=== PATIENT | female | born 1950 | race Caucasian/White ===

== ENCOUNTER 2023-03-06 09:37 | Inpatient (IN) ==
[2023-03-06] MEDS ORDERED: SODIUM CHLORIDE 0.9% 500 ML IV SCH (10:00)
--- NOTE | 2023-03-06 10:15 | Emergency Department Note ---
Impression & Plan Acute ischemic left MCA stroke, Acute confusion, Tobacco use disorder, Hypokalemia ED Provider Note NAME: TRISTAN JOY AGE: 72 SEX: F : 1950 ARRIVES VIA: Ambulance INFORMANT: [Patient][, ] ED PROVIDER(S): [Gian Arnold MD] CHIEF COMPLAINT: Possible confusion MEDICAL DECISION MAKING: Patient presents due to concern for possible confusion but symptoms in several days ago. IV was established and blood was obtained along with urinalysis and CT of the head. Patient does have T wave inversions noted on EKG but most of this appears to be chronic and patient denies any chest pains or shortness of breath. Blood work shows a normal white count mild elevation hemoglobin at 16.7 with normal platelet count. Patient's kidney function is unremarkable mild elevation of bicarb of the patient is a chronic smoker. Potassium slightly low at 3.1. Troponin not elevated. Urinalysis without obvious signs of blood or infection. Bio fire positive for enterorhinovirus. CT of the head does show concern for acute stroke at the left caudate. 4 mm of shift noted. CT angiography's of the head and neck were ordered along with brain MRI. CTA of the head and neck does show the infarct of the left basal ganglia. No evidence of any hemorrhagic conversion. The patient does have focal thrombosis of the distal M1 segment of the left MCA with distal reconstitution. Moderate stenosis of the right PETR. High-grade focal stenosis of a portion of the right internal carotid. I did speak with the on-call neurologist Dr. Verma after discussing the patient's chronicity of symptoms as well as findings on CT and CT angiography he is agreeable to aspirin as well as a Plavix load. Patient is already been ordered full dose aspirin additional treatment deferred to inpatient hospitalist team. Patient did pass her dysphagia screen. I did speak with the on-call hospitalist and the patient was admitted to the medicine service pending brain MRI. Patient was not a TNK candidate given that her symptoms began several days ago. Discussion w/ other healthcare providers: Dr. Mariano with inpatient medicine service Dr. Verma with neurology Prior /Outside records reviewed: Reviewed a primary care visit from October 01, 2022. The patient was seen due to concern for impacted cerumen of the right ear as well as sinusitis and was started on doxycycline. Differential diagnosis: Infection, dehydration, metabolic abnormality, hypo/hyperglycemia, electrolyte imbalance, anemia, UTI, pneumonia, thyroid dysfunction among others were considered. Diagnostics, as interpreted by me: ECG: Normal sinus rhythm, rate of 61, normal intervals, left axis deviation with T wave inversions from V3 through V6 as well as in the high lateral leads. No significant changes from comparison EKG May 08, 2022 Cardiac monitoring: An order was placed for continuous cardiac monitoring. The monitor shows a rate of 62 with sinus rhythm. [Patient was placed on pulse oximetry] Medical decision rules: [none] Imaging studies: [I informally interpreted the patient's CT head which does not show obvious ICH with formal report to follow.] [] HPI: Patient presents and nursing reports that the was concerned about some possible confusion and the patient does admit to not being able to answer certain questions but the patient denies any headache or neck pain no cough or fever. The patient is a chronic smoker. Patient denies any dysuria or increase in frequency no urinary symptoms. Patient denies any falls or trauma. Patient denies any numbness tingling or focal weakness no slurred speech or facial droop. Patient denies having any symptoms in the preceding several days prior. Patient is a chronic smoker. She denies any alcohol or drug use. PAST MEDICAL HISTORY: [See Below] PAST SURGICAL HISTORY: [See Below] SOCIAL HISTORY: [See Below] HOME MEDICATIONS: [See Below] ALLERGIES: [See Below] VITALS: [See Below] PHYSICAL EXAMINATION: GENERAL: NAD, non-toxic. Thin in appearance. EYE EXAM: Normal conjunctiva. PERRL, no anisocoria and EOM's grossly intact w/o pain. OROPHARYNX: Moist mucus membranes, grossly normal dentition. NECK: Supple, no nuchal rigidity, no adenopathy, non-tender. No signs of meningismus. FROM of the neck with good chin to chest and neck extension. No stridor. LUNGS: Decreased breath sounds throughout. Normal chest wall mechanics. HEART: NSR, no MRG. ABDOMEN: Abdomen soft, non-tender, no masses, no rebound or guarding. BACK: No CVA TTP. SKIN: No rashes and no bruising. UPPER EXTREMITIES: Upper extremities are grossly normal. LOWER EXTREMITIES: Grossly normal, no edema. NEURO EXAM: Awake and alert follows basic commands gives incorrect year but able to state where she is in location in [place], able to answer simple addition of subtraction but not multiplication, cranial nerves II-XII grossly intact, normal speech, moves all 4 extremities. No sensory deficits good [id number]. Past Med/Surg History Medical History (Updated 03/06/23 @ 17:14 by Gian Arnold MD) Hypertension Surgical History No pertinent past surgical history Family History Grandmother Breast cancer Other Colorectal cancer Unknown family medical history Denies family history of Ovarian cancer Prostate cancer Social History Smoking Status: Current every day smoker Tobacco Type: Cigarettes Age Started Using Tobacco: 23; Cigarettes Per Day: 10 cigarettes; Second Hand Exposure: No; Do You Dip or Chew Tobacco: No; Hx Alcohol Use: Yes Hx Substance Use: No Preferred Language: Norwegian Communication Ability: Effective Pie Maker Machine Required: No Beliefs That Will Affect Care: None marital status: Current Living Situation: Significant Other current occupational status: employed 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 How many Children do You have: 2 Feels Safe at Home: Yes Childhood Exposure to Second-Hand Smoke: Yes Diet: regular caffeine: Yes Dental Care, Regularly: No Physical Activity Frequency: Daily Seatbelt Use: always Sunscreen Use: Yes Do you think of yourself as: straight/heterosexual Allergies Allergies Allergy/AdvReac Type Severity Reaction Status Date / Time Penicillins Allergy Verified 10/01/22 09:30 Home Meds Home Medications Medication Instructions Recorded Confirmed prednisone 20 mg tablet 0 mg PO DAILY 03/06/23 03/06/23 Previous Rx's Medication Instructions Recorded hydrochlorothiazide 25 mg tablet 25 mg PO DAILY #90 tabs 06/10/22 potassium chloride 20 mEq 20 meq PO DAILY #90 tabs 06/10/22 tablet,extended release atenolol 100 mg tablet 100 mg PO DAILY #90 tabs 10/23/22 Results & Data (ED) Vital Signs Vital Signs - 24 hr 03/06/23 09:46 03/06/23 09:51 03/06/23 09:51 Temperature 36.6 C 36.6 C Temperature Source Oral Oral Pulse Rate 57 L Pulse Rate [Right Finger] 55 L Pulse Rhythm Regular Pulse Rhythm [Right Finger] Regular Pulse Strength Normal Pulse Strength [Right Finger] Normal Respiratory Rate 16 20 Respiratory Effort / Characteristics Non-Labored Spontaneous Non-Labored Spontaneous Respiratory Depth Normal Normal Respiratory Pattern Regular Regular Blood Pressure 182/109 H Blood Pressure [Right Arm] 182/109 H Blood Pressure Mean 133 Blood Pressure Mean [Right Arm] 133 Blood Pressure Position Lying Blood Pressure Position [Right Arm] Semi-fowlers Pulse Oximetry 96 93 93 Oxygen Delivery Method Room Air Room Air Room Air Sepsis Recent Fever Within 48 Hours No Sepsis New/Unexplained Change in Mental Status Yes Sepsis Action Taken by Nursing No Action Required 03/06/23 09:59 03/06/23 10:24 03/06/23 11:49 Temperature 36.6 C Temperature Source Oral Pulse Rate 54 L 55 L Pulse Rate [Right Finger] 55 L Pulse Rhythm Regular Pulse Rhythm [Right Finger] Regular Pulse Strength Pulse Strength [Right Finger] Normal Respiratory Rate 18 18 Respiratory Effort / Characteristics Non-Labored Spontaneous Respiratory Depth Normal Respiratory Pattern Regular Blood Pressure Blood Pressure [Right Arm] 181/100 H Blood Pressure Mean Blood Pressure Mean [Right Arm] 127 Blood Pressure Position Blood Pressure Position [Right Arm] Semi-fowlers Pulse Oximetry 94 94 Oxygen Delivery Method Room Air Room Air Sepsis Recent Fever Within 48 Hours Sepsis New/Unexplained Change in Mental Status Sepsis Action Taken by Nursing Laboratory Data 03/06/23 09:45 03/06/23 09:45 Lab Results 03/06/23 03/06/23 Range/Units 09:45 11:43 WBC 7.42 (4.8-10.8) K/ul RBC 5.33 (4.20-5.40) M/uL Hgb 16.7 H (12.0-16.0) g/dl Hct 50.6 H (37.0-47.0) % MCV 94.9 (80.0-100.0) fL MCH 31.3 (25.0-34.0) pg MCHC 33.0 (32.0-36.0) g/dL RDW Std Deviation 42.5 (36.4-46.3) fL RDW Coeff of Ytree 12.2 (11.5-14.5) % Plt Count 242 (130-400) K/uL MPV 9.6 (9.4-12.4) fL Immature Gran % (Auto) 0.4 % Neut % (Auto) 69.7 % Lymph % (Auto) 22.8 % Delta % (Auto) 6.3 % Eos % (Auto) 0.5 % Baso % (Auto) 0.3 % Neut # (Auto) 5.17 (1.40-6.50) K/uL Lymph # (Auto) 1.69 (1.20-3.40) K/uL Delta # (Auto) 0.47 (0.11-0.59) K/uL Eos # (Auto) 0.04 (0.00-0.50) K/uL Baso # (Auto) 0.02 (0.00-0.20) K/uL Immature Gran # (Auto) 0.03 (0.01-0.20) K/uL PT 11.4 (9.0-12.0) Seconds INR 1.0 (0.9-1.1) Sodium 141 (136-145) mmol/L Potassium 3.1 L (3.5-5.1) mmol/L Chloride 100 (98-107) mmol/L Carbon Dioxide 35 H (21-32) mmol/L Anion Gap 6 (3-11) BUN 22 (6-23) mg/dl Creatinine 0.74 (0.6-1.2) mg/dl Est Cr Clr Drug Dosing 53.6 ml/min Est GFR ( Amer) 95.1 ml/min Est GFR (Non-Af Amer) 82.1 ml/min BUN/Creatinine Ratio 29.7 H (10-20) Glucose 191 H (70-99(Fasting)) mg/dl Calcium 10.1 (8.6-10.3) mg/dl Magnesium 1.7 (1.7-2.4) mg/dl Total Bilirubin 0.7 (0.2-1.0) mg/dl AST 17 (13-39) U/L ALT 11 (7-52) U/L Alkaline Phosphatase 78 (34-104) U/L Troponin I High Sens 4.8 (0-14) pg/ml Total Protein 7.0 (6.0-8.3) gm/dl Albumin 4.0 (3.4-5.0) gm/dl Globulin 3.0 (2.5-4.0) gm/dl Albumin/Globulin Ratio 1.3 (0.9-2) TSH 3.435 (0.300-4.500) uIu/ml Adenovirus (PCR) Not Detected (NotDetected) B. pertussis DNA (PCR) Not Detected (NotDetected) B.parapertussis DNA PCR Not Detected (NotDetected) C. pneumoniae DNA (PCR) Not Detected (NotDetected) Coronavirus OC43 (PCR) Not Detected (NotDetected) Coronavirus HKU1 (PCR) Not Detected (NotDetected) Coronavirus 229E (PCR) Not Detected (NotDetected) SARS-CoV-2 (PCR) Not Detected (NotDetected) Coronavirus NL63 (PCR) Not Detected (NotDetected) Human Metapneumovir PCR Not Detected (NotDetected) Influenza Type A (PCR) Not Detected (NotDetected) Influenza Type B (PCR) Not Detected (NotDetected) M. pneumoniae (PCR) Not Detected (NotDetected) Parainfluenza 1 (PCR) Not Detected (NotDetected) Parainfluenza 2 (PCR) Not Detected (NotDetected) Parainfluenza 3 (PCR) Not Detected (NotDetected) Parainfluenza 4 (PCR) Not Detected (NotDetected) RSV (PCR) Not Detected (NotDetected) Entero/Rhino (PCR) DETECTED A* (NotDetected) Administered Medications Discontinued Medications Aspirin (Aspirin Chew 324 Mg) 324 mg PO NOW STA Stop: 03/06/23 10:59 Last Admin: 03/06/23 11:49 Dose: 324 mg Documented By: PATIENCE Clopidogrel Bisulfate (Clopidogrel Bisulfate 300 Mg Tab) 300 mg PO NOW STA Stop: 03/06/23 12:09 Last Admin: 03/06/23 12:32 Dose: 300 mg Documented By: PATIENCE Sodium Chloride (Nss) 500 mls @ 999 mls/hr IV .Q31M TYRONE Stop: 03/06/23 10:30 Last Infusion: 03/06/23 15:30 Dose: Infused Documented By: PATIENCE(2) Admin: 03/06/23 10:27 Dose: 999 mls/hr Documented By: PATIENCE Ioversol (Optiray 320 500ml) 113 ml IV ONCE ONE Stop: 03/06/23 11:20 Last Admin: 03/06/23 11:19 Dose: 113 ml Documented By: EDK Imaging Data Radiologist's Impression: Chest X-Ray 03/06/23 09:59 XR chest 1V portable CLINICAL HISTORY: weakness TECHNIQUE: Single frontal radiograph of the chest was obtained. Comparison: Comparison is made to chest radiograph 05/09/2022 FINDINGS: No lines and tubes are seen. Calcified aortic knob is seen. The lungs are clear. No evidence of pleural effusion or pneumothorax. IMPRESSION: No acute chest disease. ACT 112: Negative or not required by law. Electronically signed by: Oskar Akins M.D. 03/06/2023 10:[address] 03/06/23 10:00 CT head/brain wo con CLINICAL HISTORY: confusion Technique: Contiguous axial CT images of the head were acquired from the base of the skull to the vertex without intravenous contrast administration. Images were viewed in brain, subdural and bone windows. Automated dose lowering techniques and/or adjustment according to patient size were utilized for this exam. Comparison: None available at the time of this dictation. Findings: There is focal edema at the region of the left caudate head. Mild mass effect is seen on the left lateral ventricle with approximately 4 mm rightward midline shift. No hemorrhage is seen. Imaged portions of the paranasal sinuses and mastoid air cells are clear. The orbits appear normal. There are no acute fractures of the calvaria or scalp swelling. Impression: Findings compatible with acute infarct in the region of the left caudate head without evidence of hemorrhagic transformation. ACT 112: Negative or not required by law. Electronically signed by: Oskar Akins M.D. 03/06/2023 10:25 AM Brain MRI 03/06/23 10:58 MR brain wo con HISTORY: 72 years-old Female eval stroke acute stroke like symptoms COMPARISON: 03/06/2023 TECHNIQUE: Multiplanar multisequence MRI of the brain was obtained without the use of IV contrast. FINDINGS: Acute left cerebral infarcts include a 2.9 cm infarct in the left cantu radiata which also involves the lentiform nucleus and external capsule. Tiny adjacent subcentimeter acute infarcts are noted within the cantu radiata superior to this and also within the left insular ribbon. Cytotoxic edema from the infarction is noted with mass effect and partial effacement of the left lateral ventricle. 4 mm rightward midline shift. No acute intracranial hemorrhage, hydrocephalus or abnormal extra-axial collection. Involutional changes with mild chronic microvascular ischemic disease. Occlusion of the left middle cerebral artery is better seen on the CTA study of same day. Severe mucosal thickening of the left maxillary sinus. IMPRESSION: 1. Acute infarct within the left caudate nucleus, cantu radiata and lentiform nucleus measuring up to approximately 3 mm with a few adjacent subcentimeter acute infarcts within the left frontal lobe. 2. 4 mm rightward midline shift. 3. No acute intracranial hemorrhage or hydrocephalus. ACT 112: Negative or not required by law. The above report was generated using voice recognition software. It may contain grammatical, syntax or spelling errors. Electronically signed by: Guicho Brian M.D. 03/06/2023 2:34 PM Head CTA 03/06/23 10:58 CT ANGIOGRAM OF THE BRAIN; CT ANGIOGRAM OF THE NECK CLINICAL HISTORY: Stroke. Weakness. Change in mental status. COMPARISON STUDY: Unenhanced CT of the brain performed the same day 03/06/2023. TECHNIQUE: Following the IV administration of 113 of Optiray 320, CT angiogram of the head and neck was performed from the aortic arch to the vertex. Images are reviewed in the axial, sagittal, and coronal planes. 3-D MIPS images are created and assessed. IV contrast was administered without complication. All measurements were calculated based on NASCET criteria. A dose lowering technique was utilized adhering to the principles of ALARA. CT DOSE: 408.3 mGy.cm FINDINGS: Brain parenchyma: Again seen is a subacute infarct centered in the left basal ganglia. There is no evidence of hemorrhage or mass effect noting angiographic phase technique. There is also likely loss of garcia-white matter differentiation in the left insular cortex. There is no evidence of enhancing mass lesion on the angiogram phase images. The ventricles, sulci, and cisterns are normal in configuration. No extra-axial fluid collection is seen. Thoracic aorta: There is atherosclerotic calcification of the thoracic aorta. Visualized portions of the thoracic aorta are normal in caliber. The aortic arch demonstrates standard 3-vessel anatomy. Right carotid arterial system: The right common carotid artery is widely patent, as are the right internal and external carotid arteries. Calcified plaque is noted in the carotid bulb. Left carotid arterial system: The left common carotid artery is widely patent, as are the left internal and external carotid arteries. Calcified plaque is noted in the carotid bulb. Vertebral arteries: The vertebral arteries are widely patent bilaterally noting mild left-sided dominance. Subclavian arteries: Widely patent bilaterally. Intracranial vasculature: There is atherosclerotic calcification of the cavernous carotid arteries. The internal carotid arteries are patent at the skull base. There is high-grade focal stenosis of the distal petrous segment of the right internal carotid artery seen on axial image #66. The left internal carotid artery is patent. The anterior cerebral arteries are patent bilaterally noting atherosclerotic plaque and irregularity. There is at least moderate focal stenosis of the right anterior cerebral artery seen on coronal MIPS image #27. The right middle cerebral artery is widely patent. There is complete focal occlusion of the distal M1 segment of the left middle cerebral artery seen on axial image #107 with distal reconstitution. There is also shown coronal MIPS image #31. The vertebrobasilar system and posterior cerebral arteries are widely patent. The left vertebral artery is dominant. There is no aneurysm, high-grade stenosis, or focal vessel cut off seen throughout the intracranial circulation. Jugular veins: Patent bilaterally. Dural sinuses: Patent. Lung apices: Emphysematous change is seen in the upper lobes.. Soft tissues: The visualized pharyngeal soft tissues are normal in appearance noting angiographic phase technique. The oropharyngeal airway appears widely patent. The salivary and thyroid glands are normal in appearance. No cervical lymphadenopathy is seen. Skeletal structures: The skeletal structures are osteopenic. The calvarium appears intact. The cervical spine is maintained noting multilevel spondylosis. Orbits: The bony orbits are intact. Orbital contents are normal as visualized. Sinuses and mastoids: There is complete opacification of the left maxillary antrum. Thickening and sclerosis of the sinus wall indicates chronicity. Moderate mucosal thickening is seen within the left anterior ethmoid sinuses. Trace mucosal thickening is noted in the right maxillary antrum. The mastoid air cells are well pneumatized. Dentition: There are numerous dental caries and large periapical lucencies. The largest involve the posterior maxillary molars. IMPRESSION: 1. Again seen is a subacute infarct centered in the left basal ganglia. There may also be loss of garcia-white matter differentiation/ischemia in the left insular cortex. 2. There is no evidence of hemorrhage on this contrast-enhanced examination. No significant mass effect is seen. 3. There is complete focal thrombosis of the distal M1 segment of the left middle cerebral artery with distal reconstitution. 4. There is at least moderate focal stenosis of the right anterior cerebral artery. 5. There is high-grade focal stenosis of the distal petrous segment of the right internal carotid artery at the skull base. This is likely secondary to atheromatous change. Underlying focal dissection would be impossible to exclude. 6. The posterior circulation is maintained. 7. Unremarkable CT angiogram of the neck. 8. Emphysema. 9. Periodontal disease as above. Nonemergent follow up with dentistry is recommended. ACT 112: Negative or not required by law. Electronically signed by: Reno Navarro M.D. 03/06/2023 11:48 AM Neck CTA 03/06/23 10:58 CT ANGIOGRAM OF THE BRAIN; CT ANGIOGRAM OF THE NECK CLINICAL HISTORY: Stroke. Weakness. Change in mental status. COMPARISON STUDY: Unenhanced CT of the brain performed the same day 03/06/2023. TECHNIQUE: Following the IV administration of 113 of Optiray 320, CT angiogram of the head and neck was performed from the aortic arch to the vertex. Images are reviewed in the axial, sagittal, and coronal planes. 3-D MIPS images are created and assessed. IV contrast was administered without complication. All measurements were calculated based on NASCET criteria. A dose lowering technique was utilized adhering to the principles of ALARA. CT DOSE: 408.3 mGy.cm FINDINGS: Brain parenchyma: Again seen is a subacute infarct centered in the left basal ganglia. There is no evidence of hemorrhage or mass effect noting angiographic phase technique. There is also likely loss of garcia-white matter differentiation in the left insular cortex. There is no evidence of enhancing mass lesion on the angiogram phase images. The ventricles, sulci, and cisterns are normal in configuration. No extra-axial fluid collection is seen. Thoracic aorta: There is atherosclerotic calcification of the thoracic aorta. Visualized portions of the thoracic aorta are normal in caliber. The aortic arch demonstrates standard 3-vessel anatomy. Right carotid arterial system: The right common carotid artery is widely patent, as are the right internal and external carotid arteries. Calcified plaque is noted in the carotid bulb. Left carotid arterial system: The left common carotid artery is widely patent, as are the left internal and external carotid arteries. Calcified plaque is noted in the carotid bulb. Vertebral arteries: The vertebral arteries are widely patent bilaterally noting mild left-sided dominance. Subclavian arteries: Widely patent bilaterally. Intracranial vasculature: There is atherosclerotic calcification of the cavernous carotid arteries. The internal carotid arteries are patent at the skull base. There is high-grade focal stenosis of the distal petrous segment of the right internal carotid artery seen on axial image #66. The left internal carotid artery is patent. The anterior cerebral arteries are patent bilaterally noting atherosclerotic plaque and irregularity. There is at least moderate focal stenosis of the right anterior cerebral artery seen on coronal MIPS image #27. The right middle cerebral artery is widely patent. There is complete focal occlusion of the distal M1 segment of the left middle cerebral artery seen on axial image #107 with distal reconstitution. There is also shown coronal MIPS image #31. The vertebrobasilar system and posterior cerebral arteries are widely patent. The left vertebral artery is dominant. There is no aneurysm, high-grade stenosis, or focal vessel cut off seen throughout the intracranial circulation. Jugular veins: Patent bilaterally. Dural sinuses: Patent. Lung apices: Emphysematous change is seen in the upper lobes.. Soft tissues: The visualized pharyngeal soft tissues are normal in appearance noting angiographic phase technique. The oropharyngeal airway appears widely patent. The salivary and thyroid glands are normal in appearance. No cervical lymphadenopathy is seen. Skeletal structures: The skeletal structures are osteopenic. The calvarium appears intact. The cervical spine is maintained noting multilevel spondylosis. Orbits: The bony orbits are intact. Orbital contents are normal as visualized. Sinuses and mastoids: There is complete opacification of the left maxillary antrum. Thickening and sclerosis of the sinus wall indicates chronicity. Moderate mucosal thickening is seen within the left anterior ethmoid sinuses. Trace mucosal thickening is noted in the right maxillary antrum. The mastoid air cells are well pneumatized. Dentition: There are numerous dental caries and large periapical lucencies. The largest involve the posterior maxillary molars. IMPRESSION: 1. Again seen is a subacute infarct centered in the left basal ganglia. There may also be loss of garcia-white matter differentiation/ischemia in the left insular cortex. 2. There is no evidence of hemorrhage on this contrast-enhanced examination. No significant mass effect is seen. 3. There is complete focal thrombosis of the distal M1 segment of the left middle cerebral artery with distal reconstitution. 4. There is at least moderate focal stenosis of the right anterior cerebral artery. 5. There is high-grade focal stenosis of the distal petrous segment of the right internal carotid artery at the skull base. This is likely secondary to atheromatous change. Underlying focal dissection would be impossible to exclude. 6. The posterior circulation is maintained. 7. Unremarkable CT angiogram of the neck. 8. Emphysema. 9. Periodontal disease as above. Nonemergent follow up with dentistry is recommended. ACT 112: Negative or not required by law. Electronically signed by: Reno Navarro M.D. 03/06/2023 11:48 AM Discharge Plan Visit Data Chief Complaint: Altered Mental Status Stated Complaint: CONFUSION ED Provider: Gian Arnold Discharge Problem: Acute ischemic left MCA stroke, Acute confusion, Tobacco use disorder, Hypokalemia Patient Disposition: Admitted As Inpatient Discharge Instructions Interventions: ED Discharge Assessment Last Done: 03/06/23 14:47
--- NOTE | 2023-03-06 10:26 | CT Scan Report ---
CT head/brain wo con CLINICAL HISTORY: confusion Technique: Contiguous axial CT images of the head were acquired from the base of the skull to the faisal albert without intravenous contrast administration. Images were viewed in brain, subdural and bone [facility]. Automated dose lowering techniques and/or adjustment according to patient size were utilized for this exam. Comparison: None available at the time of this dictation. Findings: There is focal edema at the region of the left caudate head. Mild mass effect is seen on the left lat eral ventricle with approximately 4 mm rightward midline shift. No hemorrhage is seen. Imaged portions of the paranasal sinuses and mastoid air cells are clear. The orbits appear normal. There are no acute fractures of the calvaria or scalp swelling. Impression: Findings compatible with acute infarct in the region of the left caudate head without evidence of hem orrhagic transformation. ACT 112: Negative or not required by law. Electronically signed by: Oskar Akins M.D. 03/06/2023 10:25 AM
--- NOTE | 2023-03-06 10:33 | XRay Report ---
XR chest 1V portable CLINICAL HISTORY: weakness TECHNIQUE: Single frontal radiograph of the chest was obtained. Comparison: Comparison is made to chest radiograph 05/09/2022 FINDINGS: No lines and tubes are seen. Calcified aortic knob is seen. The lungs are clear. No evidence of pleur al effusion or pneumothorax. IMPRESSION: No acute chest disease. ACT 112: Negative or not required by law. Electronically signed by: Oskar Akins M.D. 03/06/2023 10:31 AM
[2023-03-06 10:54] LABS: Basophils # (auto) 0.02 K/uL (0.00-0.20); Basophils % (auto) 0.3 %; Eosinophils # (auto) 0.04 K/uL (0.00-0.50); Eosinophils % (auto) 0.5 %; Hematocrit (blood only) 50.6 % (37.0-47.0); Hemoglobin 16.7 g/dl (12.0-16.0); Immature Granulocytes # (auto) 0.03 K/uL (0.01-0.20); Immature Granulocytes % (auto) 0.4 %; Lymphocytes # (auto) 1.69 K/uL (1.20-3.40); Lymphocytes % (auto) 22.8 %; Mean Corpuscular Hemoglobin 31.3 pg (25.0-34.0); Mean Corpuscular Volume 94.9 fL (80.0-100.0); Mean Platelet Volume 9.6 fL (9.4-12.4); Monocytes # (auto) 0.47 K/uL (0.11-0.59); Monocytes % (auto) 6.3 %; Neutrophils # (auto) 5.17 K/uL (1.40-6.50); Neutrophils % (auto) 69.7 %; Platelet Count 242 K/uL (130-400); RDW Coefficient of Variation 12.2 % (11.5-14.5); RDW Standard Deviation 42.5 fL (36.4-46.3); Red Blood Count 5.33 M/uL (4.20-5.40); White Blood Count 7.42 K/ul (4.8-10.8)
[2023-03-06] MEDS ORDERED: ASPIRIN CHEW 324 MG PO STA (10:58)
[2023-03-06 11:01] LABS: Albumin Globulin Ratio 1.3 (0.9-2); BUN Creatinine Ratio 29.7 (10-20); Bilirubin,Total 0.7 mg/dl (0.2-1.0); Calcium 10.1 mg/dl (8.6-10.3); Creatinine Clr Calc Pharmacy 53.6 ml/min; Est GFR (African American) 95.1 ml/min; Est GFR (Non-African American) 82.1 ml/min; Magnesium 1.7 mg/dl (1.7-2.4); Potassium 3.1 mmol/L (3.5-5.1)
[2023-03-06 11:07] LABS: Troponin I High Sensitivity 4.8 pg/ml (0-14)
[2023-03-06 11:16] LABS: Thyroid Stimulating Hormone 3.435 uIu/ml (0.300-4.500)
[2023-03-06 11:17] LABS: Prothrombin Time 11.4 Seconds (9.0-12.0)
[2023-03-06] MEDS ORDERED: OPTIRAY 320 500ml IV ONE (11:19)
--- NOTE | 2023-03-06 11:39 | History & Physical Report ---
Date of Service March 06, 2023 Assessment & Plan (1) Acute ischemic stroke: (2) Elevated fasting blood sugar: (3) Sciatic leg pain: (4) Tobacco use disorder: (5) Hypertension: Plan Lauren is a 72F with history of elevated fasting BSG, sciatica, hyperbilirubinemia, tobacco use, HTN, and back pain who presents for evaluation of altered mental status. Acute Ischemic Stroke w/ AMS - Patient poor historian: Unknown last known normal (2-3 days per EMS report) - CTA indicating * Subacute infarct in left basal ganglia, loss of garcia-white matter/ischemia in left insular cortex * No evidence of hemorrhage, no significant mass effect * Complete focal thrombosis of distal M1 segment of L MCA w/ distal reconstitution * Moderate focal stenosis of R PETR * High grade focal stenosis of distal petrous segment of R ICA at skull base * Posterior circulation maintained * CT Angio neck unremarkable - CXR unremarkable - Patient received full dose Aspirin in ED, continue Aspirin 81 mg daily - Start patient on DAPT w/ Clopidogrel 300 mg PO in ED, continue Clopidogrel 75 mg PO daily - Echocardiogram ordered w/ bubble study - CBC indicating hemoconcentration, CMP indicating hyperglycemia and hypokalemia - Patient started on high dose statin therapy w/ Atorvastatin - Given unclear duration of symptoms, will allow permissive HTN for 24h * Labetalol 10 mg Q6h ordered, goal < 220/110, other antihypertensives held on admission * Goal SBP < 180 after 24 hours of permissive HTN - For lifestyle/risk modification * Encourage smoking cessation * Ordered A1c given hx of elevated BSG * Ordered Lipid profile given hx of elevated cholesterol levels - Consulted Neurology - Dysphagia screening ordered - Repeat BMP and CBC ordered for AM - OT/PT ordered Hypertension - Atenolol and Hydrochlorothiazide held on admission Hypokalemia - Patient on chronic KCl supplementation - Provided on admission given K of 3.1 FEN: NPO pending speach eval Code status: Full Code DVT ppx: Lovenox in AM Isolation: None Dispo:PCU/tele History of Present Illness Chief Complaint: AMS Primary Care Provider: PAUL Prather Lauren is a 72F with history of elevated fasting BSG, sciatica, hyperbilirubinemia, tobacco use, HTN, and back pain who presents for evaluation of altered mental status. Patient is a notably poor historian, she notes that her told her that she had to come in (multiple attempts to reach at listed number and number provided by patient unsuccessful). Patient denies any symptoms. She is not experiencing any chest pain, dyspnea, headaches, lightheadedness, dizziness, or weakness in her upper or lower extremities. She is not experiencing any vision or hearing changes. Patient denies any recent changes in home medications. Last Known Normal: Unknown ER Course: Aspirin 325 mg, NSS bolus Allergies Allergy/AdvReac Type Severity Reaction Status Date / Time Penicillins Allergy Verified 10/01/22 09:30 Home Medications Medication Instructions Recorded Confirmed Type hydrochlorothiazide 25 mg tablet 25 mg PO DAILY #90 tabs 06/10/22 03/06/23 Rx potassium chloride 20 mEq 20 meq PO DAILY #90 tabs 06/10/22 03/06/23 Rx tablet,extended release atenolol 100 mg tablet 100 mg PO DAILY #90 tabs 10/23/22 03/06/23 Rx prednisone 20 mg tablet 0 mg PO DAILY 03/06/23 03/06/23 History Past Med/Surg History Medical History (Updated 03/06/23 @ 12:16 by Elda Mcdonald DO) Hypertension Surgical History No pertinent past surgical history Family History Grandmother Breast cancer Other Colorectal cancer Unknown family medical history Denies family history of Ovarian cancer Prostate cancer Social History Smoking Status: Current every day smoker Tobacco Type: Cigarettes Age Started Using Tobacco: 23; Cigarettes Per Day: 10 cigarettes; Second Hand Exposure: No; Do You Dip or Chew Tobacco: No; Hx Alcohol Use: Yes Hx Substance Use: No Preferred Language: [place] Communication Ability: Effective Wharf Tender Required: No Beliefs That Will Affect Care: None marital status: Current Living Situation: Significant Other current occupational status: employed 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 How many Children do You have: 2 Feels Safe at Home: Yes Childhood Exposure to Second-Hand Smoke: Yes Diet: regular caffeine: Yes Dental Care, Regularly: No Physical Activity Frequency: Daily Seatbelt Use: always Sunscreen Use: Yes Do you think of yourself as: straight/heterosexual Physical Exam 2 Physical Exam: Gen: NAD, alert, interactive, occasional word finding difficulties HEENT: Supple, no LAD Resp:Non-labored, no wheezing/rhonchi/rales, CTAB CV:RRR, normal S1/S2, no M/R/G Abd: Soft, on-distended, no TTP, normoactive bowels, no masses Extr: 2+ dp bilaterally, no edema Skin: No rashes lesions or erythema Neuro: I: Smell intact II/III/IV/: EOMI, PERRLA V: Facial sensation intact VII: Facial expressions intact VIII: Hearing intact IX: Unassessed X: Bradycardic, bowel sounds active XI: Head/shoulder movement intact XII: Tongue movement intact Results & Data Results & Data Vital Signs (Past 12 Hours) Vital Signs Temp Pulse Pulse Resp BP BP Pulse Ox 03/06/23 10:24 55 L 03/06/23 09:51 36.6 C 55 L 20 182/109 H 93 03/06/23 09:51 93 03/06/23 09:46 36.6 C 57 L 16 182/109 H 96 O2 Del Method 03/06/23 10:24 03/06/23 09:51 Room Air 03/06/23 09:51 Room Air 03/06/23 09:46 Room Air Laboratory Results 03/06/23 09:45 WBC 7.42 RBC 5.33 Hgb 16.7 H Hct 50.6 H MCV 94.9 MCH 31.3 MCHC 33.0 RDW Std Deviation 42.5 RDW Coeff of Tyree 12.2 Plt Count 242 MPV 9.6 Immature Gran % (Auto) 0.4 Neut % (Auto) 69.7 Lymph % (Auto) 22.8 [place] % (Auto) 6.3 Eos % (Auto) 0.5 Baso % (Auto) 0.3 Neut # (Auto) 5.17 Lymph # (Auto) 1.69 [place] # (Auto) 0.47 Eos # (Auto) 0.04 Baso # (Auto) 0.02 Immature Gran # (Auto) 0.03 PT 11.4 INR 1.0 Sodium 141 Potassium 3.1 L Chloride 100 Carbon Dioxide 35 H Anion Gap 6 BUN 22 Creatinine 0.74 Est Cr Clr Drug Dosing 53.6 Est GFR ( Amer) 95.1 Est GFR (Non-Af Amer) 82.1 BUN/Creatinine Ratio 29.7 H Glucose 191 H Calcium 10.1 Magnesium 1.7 Total Bilirubin 0.7 AST 17 ALT 11 Alkaline Phosphatase 78 Troponin I High Sens 4.8 Total Protein 7.0 Albumin 4.0 Globulin 3.0 Albumin/Globulin Ratio 1.3 TSH 3.435 Diagnostic Findings Chest X-Ray 03/06/23 09:59 XR chest 1V portable CLINICAL HISTORY: weakness TECHNIQUE: Single frontal radiograph of the chest was obtained. Comparison: Comparison is made to chest radiograph 05/09/2022 FINDINGS: No lines and tubes are seen. Calcified aortic knob is seen. The lungs are clear. No evidence of pleural effusion or pneumothorax. IMPRESSION: No acute chest disease. ACT 112: Negative or not required by law. Electronically signed by: Oskar Akins M.D. 03/06/2023 10:[address] 03/06/23 10:00 CT head/brain wo con CLINICAL HISTORY: confusion Technique: Contiguous axial CT images of the head were acquired from the base of the skull to the vertex without intravenous contrast administration. Images were viewed in brain, subdural and bone windows. Automated dose lowering techniques and/or adjustment according to patient size were utilized for this exam. Comparison: None available at the time of this dictation. Findings: There is focal edema at the region of the left caudate head. Mild mass effect is seen on the left lateral ventricle with approximately 4 mm rightward midline shift. No hemorrhage is seen. Imaged portions of the paranasal sinuses and mastoid air cells are clear. The orbits appear normal. There are no acute fractures of the calvaria or scalp swelling. Impression: Findings compatible with acute infarct in the region of the left caudate head without evidence of hemorrhagic transformation. ACT 112: Negative or not required by law. Electronically signed by: Oskar Akins M.D. 03/06/2023 10:25 AM Head CTA 03/06/23 10:58 CT ANGIOGRAM OF THE BRAIN; CT ANGIOGRAM OF THE NECK CLINICAL HISTORY: Stroke. Weakness. Change in mental status. COMPARISON STUDY: Unenhanced CT of the brain performed the same day 03/06/2023. TECHNIQUE: Following the IV administration of 113 of Optiray 320, CT angiogram of the head and neck was performed from the aortic arch to the vertex. Images are reviewed in the axial, sagittal, and coronal planes. 3-D MIPS images are created and assessed. IV contrast was administered without complication. All measurements were calculated based on NASCET criteria. A dose lowering technique was utilized adhering to the principles of ALARA. CT DOSE: 408.3 mGy.cm FINDINGS: Brain parenchyma: Again seen is a subacute infarct centered in the left basal ganglia. There is no evidence of hemorrhage or mass effect noting angiographic phase technique. There is also likely loss of garcia-white matter differentiation in the left insular cortex. There is no evidence of enhancing mass lesion on the angiogram phase images. The ventricles, sulci, and cisterns are normal in configuration. No extra-axial fluid collection is seen. Thoracic aorta: There is atherosclerotic calcification of the thoracic aorta. Visualized portions of the thoracic aorta are normal in caliber. The aortic arch demonstrates standard 3-vessel anatomy. Right carotid arterial system: The right common carotid artery is widely patent, as are the right internal and external carotid arteries. Calcified plaque is noted in the carotid bulb. Left carotid arterial system: The left common carotid artery is widely patent, as are the left internal and external carotid arteries. Calcified plaque is noted in the carotid bulb. Vertebral arteries: The vertebral arteries are widely patent bilaterally noting mild left-sided dominance. Subclavian arteries: Widely patent bilaterally. Intracranial vasculature: There is atherosclerotic calcification of the cavernous carotid arteries. The internal carotid arteries are patent at the skull base. There is high-grade focal stenosis of the distal petrous segment of the right internal carotid artery seen on axial image #66. The left internal carotid artery is patent. The anterior cerebral arteries are patent bilaterally noting atherosclerotic plaque and irregularity. There is at least moderate focal stenosis of the right anterior cerebral artery seen on coronal MIPS image #27. The right middle cerebral artery is widely patent. There is complete focal occlusion of the distal M1 segment of the left middle cerebral artery seen on axial image #107 with distal reconstitution. There is also shown coronal MIPS image #31. The vertebrobasilar system and posterior cerebral arteries are widely patent. The left vertebral artery is dominant. There is no aneurysm, high-grade stenosis, or focal vessel cut off seen throughout the intracranial circulation. Jugular veins: Patent bilaterally. Dural sinuses: Patent. Lung apices: Emphysematous change is seen in the upper lobes.. Soft tissues: The visualized pharyngeal soft tissues are normal in appearance noting angiographic phase technique. The oropharyngeal airway appears widely patent. The salivary and thyroid glands are normal in appearance. No cervical lymphadenopathy is seen. Skeletal structures: The skeletal structures are osteopenic. The calvarium appears intact. The cervical spine is maintained noting multilevel spondylosis. Orbits: The bony orbits are intact. Orbital contents are normal as visualized. Sinuses and mastoids: There is complete opacification of the left maxillary antrum. Thickening and sclerosis of the sinus wall indicates chronicity. Moderate mucosal thickening is seen within the left anterior ethmoid sinuses. Trace mucosal thickening is noted in the right maxillary antrum. The mastoid air cells are well pneumatized. Dentition: There are numerous dental caries and large periapical lucencies. The largest involve the posterior maxillary molars. IMPRESSION: 1. Again seen is a subacute infarct centered in the left basal ganglia. There may also be loss of garcia-white matter differentiation/ischemia in the left insular cortex. 2. There is no evidence of hemorrhage on this contrast-enhanced examination. No significant mass effect is seen. 3. There is complete focal thrombosis of the distal M1 segment of the left middle cerebral artery with distal reconstitution. 4. There is at least moderate focal stenosis of the right anterior cerebral artery. 5. There is high-grade focal stenosis of the distal petrous segment of the right internal carotid artery at the skull base. This is likely secondary to atheromatous change. Underlying focal dissection would be impossible to exclude. 6. The posterior circulation is maintained. 7. Unremarkable CT angiogram of the neck. 8. Emphysema. 9. Periodontal disease as above. Nonemergent follow up with dentistry is recommended. ACT 112: Negative or not required by law. Electronically signed by: Reno Navarro M.D. 03/06/2023 11:48 AM Neck CTA 03/06/23 10:58 CT ANGIOGRAM OF THE BRAIN; CT ANGIOGRAM OF THE NECK CLINICAL HISTORY: Stroke. Weakness. Change in mental status. COMPARISON STUDY: Unenhanced CT of the brain performed the same day 03/06/2023. TECHNIQUE: Following the IV administration of 113 of Optiray 320, CT angiogram of the head and neck was performed from the aortic arch to the vertex. Images are reviewed in the axial, sagittal, and coronal planes. 3-D MIPS images are created and assessed. IV contrast was administered without complication. All measurements were calculated based on NASCET criteria. A dose lowering technique was utilized adhering to the principles of ALARA. CT DOSE: 408.3 mGy.cm FINDINGS: Brain parenchyma: Again seen is a subacute infarct centered in the left basal ga nglia. There is no evidence of hemorrhage or mass effect noting angiographic phase technique. There is also likely loss of garcia-white matter differentiation in the left insular cortex. There is no evidence of enhancing mass lesion on the angiogram phase images. The ventricles, sulci, and cisterns are normal in configuration. No extra-axial fluid collection is seen. Thoracic aorta: There is atherosclerotic calcification of the thoracic aorta. Visualized portions of the thoracic aorta are normal in caliber. The aortic arch demonstrates standard 3-vessel anatomy. Right carotid arterial system: The right common carotid artery is widely patent, as are the right internal and external carotid arteries. Calcified plaque is noted in the carotid bulb. Left carotid arterial system: The left common carotid artery is widely patent, as are the left internal and external carotid arteries. Calcified plaque is noted in the carotid bulb. Vertebral arteries: The vertebral arteries are widely patent bilaterally noting mild left-sided dominance. Subclavian arteries: Widely patent bilaterally. Intracranial vasculature: There is atherosclerotic calcification of the cavernous carotid arteries. The internal carotid arteries are patent at the skull base. There is high-grade focal stenosis of the distal petrous segment of the right internal carotid artery seen on axial image #66. The left internal carotid artery is patent. The anterior cerebral arteries are patent bilaterally noting atherosclerotic plaque and irregularity. There is at least moderate focal stenosis of the right anterior cerebral artery seen on coronal MIPS image #27. The right middle cerebral artery is widely patent. There is complete focal occlusion of the distal M1 segment of the left middle cerebral artery seen on axial image #107 with distal reconstitution. There is also shown coronal MIPS image #31. The vertebrobasilar system and posterior cerebral arteries are widely patent. The left vertebral artery is dominant. There is no aneurysm, high-grade stenosis, or focal vessel cut off seen throughout the intracranial circulation. Jugular veins: Patent bilaterally. Dural sinuses: Patent. Lung apices: Emphysematous change is seen in the upper lobes.. Soft tissues: The visualized pharyngeal soft tissues are normal in appearance noting angiographic phase technique. The oropharyngeal airway appears widely patent. The salivary and thyroid glands are normal in appearance. No cervical lymphadenopathy is seen. Skeletal structures: The skeletal structures are osteopenic. The calvarium appears intact. The cervical spine is maintained noting multilevel spondylosis. Orbits: The bony orbits are intact. Orbital contents are normal as visualized. Sinuses and mastoids: There is complete opacification of the left maxillary antrum. Thickening and sclerosis of the sinus wall indicates chronicity. Moderate mucosal thickening is seen within the left anterior ethmoid sinuses. Trace mucosal thickening is noted in the right maxillary antrum. The mastoid air cells are well pneumatized. Dentition: There are numerous dental caries and large periapical lucencies. The largest involve the posterior maxillary molars. IMPRESSION: 1. Again seen is a subacute infarct centered in the left basal ganglia. There may also be loss of garcia-white matter differentiation/ischemia in the left insular cortex. 2. There is no evidence of hemorrhage on this contrast-enhanced examination. No significant mass effect is seen. 3. There is complete focal thrombosis of the distal M1 segment of the left middle cerebral artery with distal reconstitution. 4. There is at least moderate focal stenosis of the right anterior cerebral artery. 5. There is high-grade focal stenosis of the distal petrous segment of the right internal carotid artery at the skull base. This is likely secondary to atheromatous change. Underlying focal dissection would be impossible to exclude. 6. The posterior circulation is maintained. 7. Unremarkable CT angiogram of the neck. 8. Emphysema. 9. Periodontal disease as above. Nonemergent follow up with dentistry is recommended. ACT 112: Negative or not required by law. Electronically signed by: Reno Navarro M.D. 03/06/2023 11:48 AM Supervising Physician Co-Signing Physician Notes Patient seen and examined, chart reviewed, case discussed with Elda Mcdonald, and I agree with the assessment and plan as above except as otherwise noted Labs and images reviewed Lauren is a 72-year-old female poor historian who presents with confusion and expressive aphasia. No focal extremity symptoms. On initial stroke evaluation she was found to have a left basal ganglier stroke, and follow-up CT angios showed high-grade focal stenosis of right ICA, and focal thrombosis of distal M1 segment of left MCA. Unclear onset of symptoms, possibly up to several days. She has no strength deficits or sensory deficits at time of ER evaluation, presenting symptom is confusion and aphasia. Case was discussed with neurology. She is not a TNKase or thrombectomy candidate. She has focal stenosis of the right ICA, this is contralateral to her basal gangla stroke and left MCA thrombosis. Labetalol on-call for hypertension initially was allowing for permissive hypertension 220/110. On review of affected territory with large distribution we will target MAP goal of around 110, do not target MAP less than 100. In addition due to hemorrhagic transformation risk will pursue Plavix monotherapy rather than dual antiplatelet therapy. Patient is at high risk for hemorrhagic conversion, if worsening deficits or mental status overnight should have stat repeat CT to evaluate for cerebral edema versus bleed. Patient reevaluated at time of arrival to the floor, she is resting comfortably and awakens easily. She reports she is not sure why she is in the hospital and appears pleasantly confused, but oriented to name/place. 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 Resident Activity Tracking Resident Involvement: Resident Care Provided Care Provided: Adult [facility]
--- NOTE | 2023-03-06 11:49 | CT Scan Report ---
CT ANGIOGRAM OF THE BRAIN; CT ANGIOGRAM OF THE NECK CLINICAL HISTORY: Stroke. Weakness. Change in mental status. COMPARISON STUDY: Unenhanced CT of the brain performed the same day 03/06/2023. TECHNIQUE: Following the IV administration of 113 of Optiray 320, CT angiogram of the head and neck w as performed from the aortic arch to the vertex. Images are reviewed in the axial, sagittal, and patrizia nal planes. 3-D MIPS images are created and assessed. IV contrast was administered without complicati on. All measurements were calculated based on NASCET criteria. A dose lowering technique was utilize d adhering to the principles of ALARA. CT DOSE: 408.3 mGy.cm FINDINGS: Brain parenchyma: Again seen is a subacute infarct centered in the left basal ganglia. There is no ev idence of hemorrhage or mass effect noting angiographic phase technique. There is also likely loss of garcia-white matter differentiation in the left insular cortex. There is no evidence of enhancing mass lesion on the angiogram phase images. The ventricles, sulci, and cisterns are normal in configuratio n. No extra-axial fluid collection is seen. Thoracic aorta: There is atherosclerotic calcification of the thoracic aorta. Visualized portions of the thoracic aorta are normal in caliber. The aortic arch demonstrates standard 3-vessel anatomy. Right carotid arterial system: The right common carotid artery is widely patent, as are the right int ernal and external carotid arteries. Calcified plaque is noted in the carotid bulb. Left carotid arterial system: The left common carotid artery is widely patent, as are the left financial services internship al and external carotid arteries. Calcified plaque is noted in the carotid bulb. Vertebral arteries: The vertebral arteries are widely patent bilaterally noting mild left-sided domin ance. Subclavian arteries: Widely patent bilaterally. Intracranial vasculature: There is atherosclerotic calcification of the cavernous carotid arteries. T he internal carotid arteries are patent at the skull base. There is high-grade focal stenosis of the distal petrous segment of the right internal carotid artery seen on axial image #66. The left financial services internship al carotid artery is patent. The anterior cerebral arteries are patent bilaterally noting atheroscler otic plaque and irregularity. There is at least moderate focal stenosis of the right anterior cerebra l artery seen on coronal MIPS image #27. The right middle cerebral artery is widely patent. There is complete focal occlusion of the distal M1 segment of the left middle cerebral artery seen on axial im age #107 with distal reconstitution. There is also shown coronal MIPS image #31. The vertebrobasilar system and posterior cerebral arteries are widely patent. The left vertebral artery is dominant. Ther e is no aneurysm, high-grade stenosis, or focal vessel cut off seen throughout the intracranial circu lation. Jugular veins: Patent bilaterally. Dural sinuses: Patent. Lung apices: Emphysematous change is seen in the upper lobes.. Soft tissues: The visualized pharyngeal soft tissues are normal in appearance noting angiographic pha se technique. The oropharyngeal airway appears widely patent. The salivary and thyroid glands are nor mal in appearance. No cervical lymphadenopathy is seen. Skeletal structures: The skeletal structures are osteopenic. The calvarium appears intact. The cervic al spine is maintained noting multilevel spondylosis. Orbits: The bony orbits are intact. Orbital contents are normal as visualized. Sinuses and mastoids: There is complete opacification of the left maxillary antrum. Thickening and sc lerosis of the sinus wall indicates chronicity. Moderate mucosal thickening is seen within the left a nterior ethmoid sinuses. Trace mucosal thickening is noted in the right maxillary antrum. The mastoid air cells are well pneumatized. Dentition: There are numerous dental caries and large periapical lucencies. The largest involve the p osterior maxillary molars. IMPRESSION: 1. Again seen is a subacute infarct centered in the left basal ganglia. There may also be loss of gra y-white matter differentiation/ischemia in the left insular cortex. 2. There is no evidence of hemorrhage on this contrast-enhanced examination. No significant mass effe ct is seen. 3. There is complete focal thrombosis of the distal M1 segment of the left middle cerebral artery wit h distal reconstitution. 4. There is at least moderate focal stenosis of the right anterior cerebral artery. 5. There is high-grade focal stenosis of the distal petrous segment of the right internal carotid art hemanth at the skull base. This is likely secondary to atheromatous change. Underlying focal dissection w ould be impossible to exclude. 6. The posterior circulation is maintained. 7. Unremarkable CT angiogram of the neck. 8. Emphysema. 9. Periodontal disease as above. Nonemergent follow up with dentistry is recommended. ACT 112: Negative or not required by law. Electronically signed by: Reno Navarro M.D. 03/06/2023 11:48 AM
[2023-03-06] MEDS ORDERED: CLOPIDOGREL BISULFATE 300 MG TAB PO STA (12:08)
[2023-03-06] MEDS ORDERED: ACETAMINOPHEN 325 MG TAB PO PRN (12:29)
--- NOTE | 2023-03-06 13:08 | Electrocardiogram Report ---
Test Reason : Blood Pressure : / mmHG Vent. Rate : 061 BPM Atrial Rate : 061 BPM P-R Int : 154 ms QRS Dur : 100 ms QT Int : 418 ms P-R-T Axes : 071 -21 176 degrees QTc Int : 420 ms Normal sinus rhythm Moderate voltage criteria for LVH, may be normal variant Abnormal ECG When compared with ECG of 09-MAY-2022 08:41, No significant change was found Confirmed by Juan F Liang ([id number]) on 03/06/2023 1:08:30 PM Referred By: REFERRED SELF Confirmed By:Juan F Liang
[2023-03-06 13:53] LABS: Adenovirus PCR Not Detected (NotDetected); Bordetella parapertussis PCR Not Detected (NotDetected); Bordetella pertussis PCR Not Detected (NotDetected); Chlamydia pneumoniae PCR Not Detected (NotDetected); Coronavirus 229E PCR Not Detected (NotDetected); Coronavirus CoV-2 (COVID19)PCR Not Detected (NotDetected); Coronavirus HKU1 PCR Not Detected (NotDetected); Coronavirus NL63 PCR Not Detected (NotDetected); Coronavirus OC43PCR Not Detected (NotDetected); Human Metapneumovirus PCR Not Detected (NotDetected); Influenza A PCR Not Detected (NotDetected); Influenza B PCR Not Detected (NotDetected); Mycoplasma pneumoniae PCR Not Detected (NotDetected); Parainfluenza Virus 1 PCR Not Detected (NotDetected); Parainfluenza Virus 2 PCR Not Detected (NotDetected); Parainfluenza Virus 3 PCR Not Detected (NotDetected); Parainfluenza Virus 4 PCR Not Detected (NotDetected); Respiratory Syncytial VirusPCR Not Detected (NotDetected)
[2023-03-06 14:09] LABS: Rhinovirus/Enterovirus PCR DETECTED (NotDetected)
[2023-03-06 14:14] LABS: Appearance Urine Clear (Clear); Bilirubin Urine Negative (Negative); Blood Urine Negative (Negative); Color Urine Yellow; Glucose Urine UA Negative (Negative); Ketones Urine Negative (Negative); Leukocyte Esterase Urine Negative (Negative); Nitrite Urine Negative (Negative); Protein Urine Negative (Negative); Specific Gravity Urine > 1.045 (1.000-1.030); Urobilinogen Urine Negative (Negative)
--- NOTE | 2023-03-06 14:37 | Magnetic Resonance Report ---
MR brain wo con HISTORY: 72 years-old Female eval stroke acute stroke like symptoms COMPARISON: 03/06/2023 TECHNIQUE: Multiplanar multisequence MRI of the brain was obtained without the use of IV contrast. FINDINGS: Acute left cerebral infarcts include a 2.9 cm infarct in the left cantu radiata which also involves the lentiform nucleus and external capsule. Tiny adjacent subcentimeter acute infarcts are noted with in the cantu radiata superior to this and also within the left insular ribbon. Cytotoxic edema from the infarction is noted with mass effect and partial effacement of the left lateral ventricle. 4 mm r ightward midline shift. No acute intracranial hemorrhage, hydrocephalus or abnormal extra-axial colle ction. Involutional changes with mild chronic microvascular ischemic disease. Occlusion of the left middle c erebral artery is better seen on the CTA study of same day. Severe mucosal thickening of the left max illary sinus. IMPRESSION: 1. Acute infarct within the left caudate nucleus, cantu radiata and lentiform nucleus measuring up t o approximately 3 mm with a few adjacent subcentimeter acute infarcts within the left frontal lobe. 2. 4 mm rightward midline shift. 3. No acute intracranial hemorrhage or hydrocephalus. ACT 112: Negative or not required by law. The above report was generated using voice recognition software. It may contain grammatical, syntax o r spelling errors. Electronically signed by: Guicho Brian M.D. 03/06/2023 2:34 PM
[2023-03-06] MEDS ORDERED: PHARMACIST DISCHARGE MED REC CONSULT PRN (15:29)
[2023-03-06] MEDS ORDERED: LABETALOL HCL IV 5 MG/ML 20ML IV PRN (16:42)
[2023-03-07 06:51] LABS: Basophils # (auto) 0.03 K/uL (0.00-0.20); Basophils % (auto) 0.5 %; Eosinophils # (auto) 0.07 K/uL (0.00-0.50); Eosinophils % (auto) 1.1 %; Hematocrit (blood only) 48.6 % (37.0-47.0); Hemoglobin 16.8 g/dl (12.0-16.0); Immature Granulocytes # (auto) 0.02 K/uL (0.01-0.20); Immature Granulocytes % (auto) 0.3 %; Lymphocytes % (auto) 23.5 %; Mean Corpuscular Hemoglobin 31.9 pg (25.0-34.0); Mean Corpuscular Hgb Conc 34.6 g/dL (32.0-36.0); Mean Corpuscular Volume 92.4 fL (80.0-100.0); Mean Platelet Volume 9.1 fL (9.4-12.4); Monocytes # (auto) 0.41 K/uL (0.11-0.59); Monocytes % (auto) 6.4 %; Neutrophils # (auto) 4.36 K/uL (1.40-6.50); Neutrophils % (auto) 68.2 %; Platelet Count 204 K/uL (130-400); RDW Coefficient of Variation 12.1 % (11.5-14.5); RDW Standard Deviation 41.4 fL (36.4-46.3); Red Blood Count 5.26 M/uL (4.20-5.40); White Blood Count 6.39 K/ul (4.8-10.8)
[2023-03-07 07:06] LABS: Estimated Average Glucose 120 mg/dl; Hemoglobin A1C 5.8 % (4.5-5.6)
[2023-03-07 07:28] LABS: BUN Creatinine Ratio 23.2 (10-20); Calcium 9.7 mg/dl (8.6-10.3); Chol HDL Ratio 3.8 (0-5); Est GFR (African American) 102.2 ml/min; Est GFR (Non-African American) 88.2 ml/min; Potassium 3.1 mmol/L (3.5-5.1)
--- NOTE | 2023-03-07 07:47 | Neurology Consultation ---
Date of Consultation March 07, 2023 Assessment & Plan (1) Acute ischemic left MCA stroke: (2) Expressive aphasia: (3) Hypertension: Plan This patient has an acute to subacute left basal ganglia area stroke of a moderate nature, likely ischemic from hypertension. Clinically she is doing very well although she does have some word-finding and naming issues suggesting an expressive aphasia. She does not have receptive aphasia or dysarthria and no other focal neurologic findings, meningeal signs, or encephalopathy. Therefore, I am not certain that she was confused as much as having language problems from the stroke. Her risk factors for stroke include hypertension and cigarette smoking. Her lipids are quite normal off medication and glucose today was normal as well The patient has significant vascular stenosis in the right PETR and intracranial portion of the right ICA. The left M1 segment was occluded, which is consistent with her current stroke. She has evidence of yceo-ye-[id number] old small-vessel ischemic disease on her MRI (fairly typical given her hypertension and longstanding cigarette smoking). Recommendations: 1. Continue clopidogrel 75 mg a day. 2. Her total cholesterol was less than 150. Although a low-dose statin is reasonable, she is definitely not a high dose statin candidate. 3. Control blood pressure as you are doing, aiming for a mean arterial pressure of approximately 100. 4. Speech therapy to evaluate 5. Awaiting echocardiogram Overall, I spent a total of 60 minutes with this case including review of records, review of MRI films, direct evaluation of the patient at bedside, report generation, and discussion of the case with the patient and RN at bedside and Dr. Fajardo including differential diagnosis and treatment options. History of Present Illness Reason for Consultation: Patient is a 72-year-old, who I was asked to see the request of Dr. Mcdonald, for neurologic consultation regarding Requesting Physician: Dr. Mcdonald Attending Physician: Mike Fajardo MD History of Present Illness This patient has a history of hypertension on atenolol 100 mg per day, hydrochlorothiazide 25 mg a day, and potassium. She denies any diabetes, heart disease or dyslipidemia. She has been a smoker since her early 20s. The patient was brought to the emergency room March 06 because of several days of confusion. She denied pain, headache, dizziness, speech problems, weakness, numbness, balance problems, incontinence, or vision issues. Arrived to the emergency room March 06 at 9:46 a.m. with a temperature of 36.6, pulse 57 and regular, respiratory rate 16, blood pressure 182/109, and O2 saturation 96%. She had no focal neurologic findings and there was a question about her mental status being not being as good as it might. CBC showed an elevated H&H otherwise was unremarkable. Chem profile revealed a potassium of 3.1 glucose of 191. Urinalysis and TSH were normal. Chest x-ray was unremarkable. CT scan of the head showed a left basal ganglia area hypodensity with some shift 4 mm to the right on the left lateral ventricle. CT angiography of the head and neck was remarkable for a left M1 occlusion and moderate stenosis of the right anterior cerebral artery. In the petrous portion of the right internal carotid artery who was high-grade stenosis. MRI of the brain revealed a moderate-sized left basal ganglia area stroke with some lateral ventricle 4 mm shift. There was [id number]-gc-[id number] old small-vessel ischemic disease. I reviewed these films. This morning the patient is feeling well with no symptoms and nursing reports no problems overnight. She is been in normal sinus rhythm with a pulse in the 50s. This morning, CBC was unremarkable, hemoglobin A1c was 5.8, and Chem profile still revealed a slightly low potassium. Fasting lipids revealed a total cholesterol 146 and triglycerides of 74. Allergies Allergy/AdvReac Type Severity Reaction Status Date / Time Penicillins Allergy Verified 10/01/22 09:30 Home Medications Medication Instructions Recorded Confirmed Type hydrochlorothiazide 25 mg tablet 25 mg PO DAILY #90 tabs 06/10/22 03/06/23 Rx potassium chloride 20 mEq 20 meq PO DAILY #90 tabs 06/10/22 03/06/23 Rx tablet,extended release atenolol 100 mg tablet 100 mg PO DAILY #90 tabs 10/23/22 03/06/23 Rx prednisone 20 mg tablet 0 mg PO DAILY 03/06/23 03/06/23 History Patient History Medical History (Updated 03/07/23 @ 07:40 by Devendra Verma MD) Hypertension Surgical History No pertinent past surgical history Family History Grandmother Breast cancer Other Colorectal cancer Unknown family medical history Denies family history of Ovarian cancer Prostate cancer Social History (Updated 03/07/23 @ 07:37 by Devendra Verma MD) Smoking Status: Current every day smoker Tobacco Type: Cigarettes Age Started Using Tobacco: 23; Cigarettes Per Day: 10 cigarettes; Second Hand Exposure: No; Do You Dip or Chew Tobacco: No; Hx Alcohol Use: No Hx Substance Use: No Preferred Language: [place] Leonean Communication Ability: Effective Brass Chaser Required: No Beliefs That Will Affect Care: None marital status: Current Living Situation: Spouse current occupational status: retired 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 How many Children do You have: 2 Feels Safe at Home: Yes Childhood Exposure to Second-Hand Smoke: Yes Diet: regular caffeine: Yes Dental Care, Regularly: No Physical Activity Frequency: Daily Seatbelt Use: always Sunscreen Use: Yes Do you think of yourself as: straight/heterosexual Assistive Devices: None Review of Systems Constitutional: no fever, no fatigue and no weakness Eyes: no diplopia, no eye pain and no worsening vision Ear, Nose, Mouth, Throat: no ear pain, no tinnitus, no hearing loss, no dizziness, no snoring, no hoarseness and no dysphagia Respiratory: no cough and no dyspnea Cardiovascular: no chest pain, no palpitations and no lightheadedness Gastrointestinal: no abdominal pain, no nausea and no vomiting Genitourinary: no dysuria, no urinary frequency and no urinary incontinence Musculoskeletal: no back pain, no neck pain, no radicular pain, no joint pain and no myalgia Integumentary: no rash and no lesions Neurologic: no gait abnormality, no localized weakness, no generalized weak ness, no tingling, no numbness, no tremor(s), no abnormal movements, no headache(s), no abnormal speech, no confusion and no memory loss Psychiatric: no depression, no irritability, no anxiety, no difficulty concentrating, no confusion and no hallucinations Endocrine: no fatigue and no flushing Hematologic / Lymphatic: no easy bleeding and no easy bruising Allergy / Immunological: no urticaria and no problem reported Exam (Neuro) Physical Exam: The patient is right-handed. The patient is awake, alert, and attentive. Speech is normal without any dysarthria, however, the patient has some mild word-finding difficulties and had some trouble naming objects. She could read words and phrases very well and interpret what was going on in a picture very well. Mentation and thought processes are intact, with orientation to person, place and time. Attention and concentration are normal. Mood and affect are normal and appropriate. General appearance and grooming are normal. Short and long-term memory are reasonable to conversation Pupils are 4 mm bilaterally and reactive to light. Extraocular eye muscles are intact without nystagmus. Visual acuity and visual hair seem normal grossly to confrontation. There are no deficits to sensation in the face in all 3 distributions of the fifth cranial nerve bilaterally. Corneal reflexes are positive bilaterally. Facial strength and symmetry was normal bilaterally. Hearing seems normal bilaterally. Palate moves well without asymmetry. There is normal sternocleidomastoid and trapezius (shoulder shrug) strength bilaterally. Tongue is midline with good strength bilaterally. Neck has a full range of motion without discomfort. There are no cervical bruits bilaterally. There are no cranial or ocular bruits. Heart is without murmur. There is a regular rhythm and rate. Cervical, thoracic, and lumbar spine are nontender to palpation. Gait is narrow based, with good arm swing, turns, and stance. Balance is normal eyes open or closed. With outstretched arms there is no drift. There are no resting, postural, or action tremors. There is no ataxia with finger to nose testing. There is good facility in the hands. No other abnormal involuntary movements are noted. Motor strength is 5/5 diffusely in the arms bilaterally including deltoids, biceps, triceps, brachioradialis, wrist flexors and extensors, programmer analyst health it, and intrinsic hand muscles. Motor strength is 5/5 diffusely in the legs bilaterally including hip flexors, quadriceps, hamstrings, gastrocnemius, tibialis anterior, tibialis posterior, and Peroneii muscles. Toe extensors are normal and there is good bulk in the extensor digitorum brevis muscles bilaterally. The limbs have good tone without rigidity or spasticity. There is no atrophy noted in the muscles. Muscle bulk is normal, there is no tenderness to palpation, no myotonia to percussion, and no fasciculations seen. Sensory examination is intact to touch and pin throughout all 4 limbs diffusely. Reflexes are 1/4 in the biceps, triceps, brachioradialis, quadriceps, and Achilles tendons bilaterally. There is no clonus bilaterally. Toes are downgoing with plantar stimulation bilaterally. Peripheral pulses are present and of normal quality distally in all 4 limbs. There is no peripheral edema noted in the limbs. Results & Data Vital Signs (Past 12 Hours) Vital Signs Temp Pulse Pulse Resp BP Pulse Ox O2 Del Method 03/07/23 03:00 36.6 C 58 L 20 157/74 H 96 Room Air 03/06/23 22:39 36.5 C 58 L 16 167/76 H 91 Room Air 03/06/23 22:05 47 L PG Care Time/CCT Total # of Minutes Spent Total Time Spent with Patient: Total time spent is greater than 50% in coordination of care (as documented) at patient's floor/unit and/or counseling patient: Coding Level of Care Code 48085 INT INP/OBS CARE 2/55MIN Diagnoses Acute ischemic left MCA stroke I63.512 Expressive aphasia R47.01 Hypertension I10 Time Spent (min) 60
[2023-03-07] MEDS ORDERED: ENOXAPARIN INJ 40 MG/0.4 ML SYR SQ SCH (09:00)
[2023-03-07] MEDS ORDERED: POTASSIUM CHLORIDE CRTAB 20 MEQ TABCR PO STA (09:00)
[2023-03-07] MEDS ORDERED: ASPIRIN 81 MG ECTAB PO SCH (09:00)
[2023-03-07] MEDS: ATORVASTATIN 40 MG TAB PO SCH (09:24)
[2023-03-07] MEDS: CLOPIDOGREL BISULFATE 75 MG TAB PO SCH (09:24)
[2023-03-07] MEDS: POTASSIUM CHLORIDE CRTAB 20 MEQ TABCR PO SCH (09:25)
--- NOTE | 2023-03-07 13:29 | XCELERA ---
[id number] \\[id number]
--- NOTE | 2023-03-07 21:30 | Hospitalist Progress Note ---
Date of Service March 07, 2023 Assessment & Plan (1) Acute ischemic stroke: Plan: L basal ganglia due to occlusion of a branch of L MCA risk factors - HTN, tobacco use, hyperlipidemia (LDL in the past as high as 135), pre-DM appreciate neuro consultation & recs for secondary prevention - plavix 75mg daily; lipitor 40mg daily echo without source of thrombus tele w/o a.fib left ICA w/o significant stenosis (has such on right, however) needs smoking cessation needs BP control did well with OT - no OT needed moving forward speech therapy services will be needed post-d/c awaiting PT eval (2) Elevated fasting blood sugar: Plan: hba1c 5.8% c/w pre-DM will vocational guidance counselor (3) Sciatic leg pain: Plan: chronic issue (4) Tobacco use disorder: Plan: nicoderm patch 21mg/day vocational guidance counselor to quit (5) Hypertension: Plan: allow permissive HTN today then resume BPs tomorrow and titrate (6) Hypokalemia: Plan: replace repeat K in am likely 2nd to chronic HCTZ use mag noted to be wnl (7) Carotid stenosis, right: Plan: per CTA neck -- "high-grade focal stenosis of the distal petrous segment of the right internal carotid artery at the skull base" will need f/u with vascular surgery post-d/c in meantime --> plavix, statin, and smoking cessation patient told about this issue during my visit today (8) Polycythemia secondary to smoking: Plan: even following hydration her hemoglobin remains elevated likely mild polycythemia due to chronic smoking (9) DVT prophylaxis: Plan: add heparin 5000 BID tomorrow am (10) Dental caries: Plan: seen incidentally on CTA neck will examine teeth tomorrow if any pain d/c home with PCN course and close f/u with dentistry Plan appreciate neuro eval by Dr Verma Admission and Anticipated Discharge Date Admission Date: March 06, 2023 Subjective continues with mild expressive aphasia and word-finding difficulties but no receptive deficits denies weakness in any limb no dysphagia she reports 1 ppd of tobacco prior to admission is ok with a nicoderm patch we discussed the right ICA stenosis and need for f/u for this pt tested + for rhinovirus at admission she denies any recent URI or sick contacts, but during the exam she did cough periodically Review of Systems Review of Systems: cv - no chest pain, no orthopnea pulm - no dyspnea but some cough GI - no abd pain, nausea, emesis neuro - no paresthesias, no focal motor weakness HENT - denies nasal congestion or sore throat Physical Exam Physical Exam: gen - expressive aphasia and word-finding troubles at times, NAD, occasional cough face - no droop mouth - MMM neck - no JVD; could not appreciate any bruit b/l heart - RRR, s1 s2 lungs - mild end-exp wheeze b/l, no rales abd - soft NT ND BS+ ext - no edema, pulses 2+ b/l neuro - strength 5/5 x 4 exts; expressive aphasia Results & Data Results & Data Vital Signs (Past 12 Hours) Vital Signs Temp Pulse Resp BP Pulse Ox Pulse Ox O2 Del Method 03/07/23 20:13 36.6 C 84 18 158/80 H 94 Room Air 03/07/23 15:50 36.4 C L 71 18 154/84 H 96 Room Air 03/07/23 12:30 95 03/07/23 11:33 36.9 C 59 L 18 129/77 95 Room Air O2 Del Method 03/07/23 20:13 03/07/23 15:50 03/07/23 12:30 Room Air 03/07/23 11:33 Laboratory Results Laboratory Results - last 24 hr 03/07/23 06:17 WBC 6.39 RBC 5.26 Hgb 16.8 H Hct 48.6 H MCV 92.4 MCH 31.9 MCHC 34.6 RDW Std Deviation 41.4 RDW Coeff of Tyree 12.1 Plt Count 204 MPV 9.1 L Immature Gran % (Auto) 0.3 Neut % (Auto) 68.2 Lymph % (Auto) 23.5 Lea % (Auto) 6.4 Eos % (Auto) 1.1 Baso % (Auto) 0.5 Neut # (Auto) 4.36 Lymph # (Auto) 1.50 Lea # (Auto) 0.41 Eos # (Auto) 0.07 Baso # (Auto) 0.03 Immature Gran # (Auto) 0.02 Sodium 143 Potassium 3.1 L Chloride 103 Carbon Dioxide 32 Anion Gap 8 BUN 16 Creatinine 0.69 Est Cr Clr Drug Dosing 60.0 Est GFR ( Amer) 102.2 Est GFR (Non-Af Amer) 88.2 BUN/Creatinine Ratio 23.2 H Glucose 91 Estimat Average Glucose 120 Hemoglobin A1c 5.8 H Calcium 9.7 Triglycerides 74 Cholesterol 146 LDL Cholesterol, Calc 93 VLDL Cholesterol, Calc 15 HDL Cholesterol 38 Cholesterol/HDL Ratio 3.8 PG Care Time/CCT Total # of Minutes Spent Total Time Spent with Patient: Total time spent is greater than 50% in coordination of care (as documented) at patient's floor/unit and/or counseling patient: Coding Level of Care Code 59539 SUB INP/OBS CARE 3/50MIN Diagnoses Acute ischemic stroke I63.9 Elevated fasting blood sugar R73.01 Sciatic leg pain M54.30 Tobacco use disorder F17.200 Hypertension I10 Hypokalemia E87.6 Carotid stenosis, right I65.21 Polycythemia secondary to smoking D75.1 DVT prophylaxis Z29.9 Dental caries K02.9
[2023-03-08 06:54] LABS: BUN Creatinine Ratio 30.3 (10-20); Calcium 10.1 mg/dl (8.6-10.3); Creatinine Clr Calc Pharmacy 52.4 ml/min; Est GFR (African American) 92.1 ml/min; Est GFR (Non-African American) 79.5 ml/min; Potassium 3.8 mmol/L (3.5-5.1)
[2023-03-08] MEDS: HEPARIN SOD 5,000 UNIT/0.5 ML VIAL SQ SCH ×2 (08:38→19:38)
[2023-03-08] MEDS: CLOPIDOGREL BISULFATE 75 MG TAB PO SCH (08:41)
[2023-03-08] MEDS: ATORVASTATIN 40 MG TAB PO SCH (08:41)
[2023-03-08] MEDS: NICOTINE 21 MG/24 HR TDSY TD SCH (08:41)
[2023-03-08] MEDS: POTASSIUM CHLORIDE CRTAB 20 MEQ TABCR PO SCH (08:41)
[2023-03-08] MEDS ORDERED: amLODIPine BESYLATE 5 MG TAB PO ONE (13:30)
--- NOTE | 2023-03-08 20:28 | Hospitalist Progress Note ---
Date of Service March 08, 2023 Assessment & Plan (1) Acute ischemic stroke: Plan: L basal ganglia due to occlusion of a branch of L MCA risk factors - HTN, tobacco use, hyperlipidemia (LDL in the past as high as 135), pre-DM appreciate neuro consultation & recs for secondary prevention - plavix 75mg daily; lipitor 40mg daily echo without source of thrombus tele w/o a.fib left ICA w/o significant stenosis (has such on right, however - see below) needs smoking cessation needs BP control did well with OT - no OT needed moving forward speech therapy services will be needed post-d/c passed PT eval start norvasc for BP control and follow overnight (2) Elevated fasting blood sugar: Plan: hba1c 5.8% c/w pre-DM will school guidance counselor (3) Sciatic leg pain: Plan: chronic issue (4) Tobacco use disorder: Plan: nicoderm patch 21mg/day 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 quit (5) Hypertension: Plan: pulse has been 50s/60s thus defer on atenolol start norvasc 5mg daily follow BPs (6) Hypokalemia: Plan: replaced resolved mag noted to be wnl (7) Carotid stenosis, right: Plan: per CTA neck -- "high-grade focal stenosis of the distal petrous segment of the right internal carotid artery at the skull base" will need f/u with vascular surgery post-d/c in meantime --> plavix, statin, and smoking cessation (8) Polycythemia secondary to smoking: Plan: even following hydration her hemoglobin remains elevated likely mild polycythemia due to chronic smoking (9) DVT prophylaxis: Plan: heparin 5000 BID (10) Dental caries: Plan: seen incidentally on CTA neck does have obvious caries on exam today pt told about this today needs dental f/u post-discharge Plan updated hopefully home tomorrow w/ outpatient speech therapy Admission and Anticipated Discharge Date Admission Date: March 06, 2023 Subjective tele overnight wnl at bedside during the visit we discussed her stroke and her after-care she will need (speech therapy) pt without any new complaints did mention that she has been losing weight despite normal appetite at home 03/2022 weight in computer - 49 kg; this is her current weight the weight loss has been over 2+ years per the flowsheets Review of Systems Review of Systems: neuro - no new deficits; just speech; no headaches cv - no orthopnea or cp pulm - per had recent "chest cold" but improved Physical Exam Physical Exam: gen - expressive aphasia and word-finding troubles at times - but this seems be tter today; NAD face - no droop mouth - MMM, poor dentition with caries noted neck - no JVD heart - RRR, s1 s2, no murmur lungs - CTA b/l today abd - soft NT ND BS+ ext - no edema, pulses 2+ b/l neuro - strength 5/5 x 4 exts; mild expressive aphasia Results & Data Results & Data Vital Signs (Past 12 Hours) Vital Signs Temp Pulse Pulse Resp BP Pulse Ox O2 Del Method 03/08/23 19:40 36.6 C 66 18 159/87 H 94 Room Air 03/08/23 15:56 70 03/08/23 15:38 36.4 C L 73 16 155/83 H 94 Room Air 03/08/23 11:58 36.4 C L 62 18 171/94 H 94 Room Air Laboratory Results Laboratory Results - last 24 hr 03/08/23 06:18 Sodium 143 Potassium 3.8 D Chloride 104 Carbon Dioxide 33 H Anion Gap 6 BUN 23 Creatinine 0.76 Est Cr Clr Drug Dosing 52.4 Est GFR ( Amer) 92.1 Est GFR (Non-Af Amer) 79.5 BUN/Creatinine Ratio 30.3 H Glucose 88 Calcium 10.1 PG Care Time/CCT Total # of Minutes Spent Total Time Spent with Patient: Total time spent is greater than 50% in coordination of care (as documented) at patient's floor/unit and/or counseling patient: Coding Level of Care Code 60547 SUB INP/OBS CARE 2/35MIN Diagnoses Acute ischemic stroke I63.9 Elevated fasting blood sugar R73.01 Sciatic leg pain M54.30 Tobacco use disorder F17.200 Hypertension I10 Hypokalemia E87.6 Carotid stenosis, right I65.21 Polycythemia secondary to smoking D75.1 DVT prophylaxis Z29.9 Dental caries K02.9
[2023-03-09 07:34] LABS: BUN Creatinine Ratio 24.7 (10-20); Calcium 9.5 mg/dl (8.6-10.3); Creatinine Clr Calc Pharmacy 55.5 ml/min; Est GFR (African American) 96.7 ml/min; Est GFR (Non-African American) 83.4 ml/min; Potassium 3.6 mmol/L (3.5-5.1)
--- NOTE | 2023-03-09 07:57 | Pharmacy Report ---
- Date of Service March 09, 2023 - Pharmacy CVA/TIA Medication Review Medications to Prevent Stroke handout has been added to the patients discharge packet. Antiplatelet(s) * n/a Cholesterol * High intensity statin: atorvastatin 40 mg daily DVT Prophylaxis * Heparin SQ Therapeutic Anticoagulation * No history of Afib/Aflutter noted Type 2 Diabetes * A1c 5.8% - pre-diabetes. Provider to provide counseling per notes
[2023-03-09] MEDS: NICOTINE 21 MG/24 HR TDSY TD SCH (08:00)
[2023-03-09] MEDS: HEPARIN SOD 5,000 UNIT/0.5 ML VIAL SQ SCH (08:01)
[2023-03-09] MEDS: CLOPIDOGREL BISULFATE 75 MG TAB PO SCH (08:01)
[2023-03-09] MEDS: POTASSIUM CHLORIDE CRTAB 20 MEQ TABCR PO SCH (08:02)
[2023-03-09] MEDS: ATORVASTATIN 40 MG TAB PO SCH (08:02)
[2023-03-09] MEDS ORDERED: amLODIPine BESYLATE 5 MG TAB PO SCH (09:00)
[2023-03-09] MEDS ORDERED: STROKE PATIENT DISCHARGE STA (13:34)
--- NOTE | 2023-03-09 13:44 | Discharge Summary ---
Date of Service March 09, 2023 Admission HPI Per Admitting Provider Lauren is a 72F with history of elevated fasting BSG, sciatica, hyperbilirubinemia, tobacco use, HTN, and back pain who presents for evaluation of altered mental status. Patient is a notably poor historian, she notes that her told her that she had to come in (multiple attempts to reach at listed number and number provided by patient unsuccessful). Patient denies any symptoms. She is not experiencing any chest pain, dyspnea, headaches, lightheadedness, dizziness, or weakness in her upper or lower extremities. She is not experiencing any vision or hearing changes. Patient denies any recent changes in home medications. Last Known Normal: Unknown ER Course: Aspirin 325 mg, NSS bolus Discharge Exam gen - expressive aphasia and word-finding troubles at times - but this seems better today; NAD face - no droop mouth - MMM, poor dentition with caries noted neck - no JVD heart - RRR, s1 s2, no murmur lungs - CTA b/l today abd - soft NT ND BS+ ext - no edema, pulses 2+ b/l neuro - strength 5/5 x 4 exts; mild expressive aphasia Discharge Data Allergies Allergy/AdvReac Type Severity Reaction Status Date / Time Penicillins Allergy Verified 10/01/22 09:30 Consultations 03/06/23 10:59 ED Decision to Admit Stat 03/06/23 12:35 Consult Neurology Routine 03/09/23 11:55 Burn CD for patient Routine Ordered Studies 03/06/23 10:00 CT head/brain wo con Stat 11/10/23 10:58 CT angio head w con Stat CT angio neck with con Stat MR brain wo con Stat Hospital Course (1) Acute ischemic stroke: L basal ganglia due to occlusion of a branch of L MCA risk factors - HTN, tobacco use, hyperlipidemia (LDL in the past as high as 135), pre-DM appreciate neuro consultation & recs for secondary prevention - plavix 75mg daily; lipitor 40mg daily echo without source of thrombus tele w/o a.fib left ICA w/o significant stenosis (has such on right, however - see below) needs smoking cessation needs BP control did well with OT - no OT needed moving forward speech therapy services will be needed post-d/c passed PT eval start norvasc for BP control and follow overnight (2) Elevated fasting blood sugar: hba1c 5.8% c/w pre-DM will counseling specialist (3) Sciatic leg pain: chronic issue (4) Tobacco use disorder: nicoderm patch 21mg/day counseling specialist to quit (5) Hypertension: pulse has been 50s/60s thus defer on atenolol start norvasc 5mg daily follow BPs (6) Hypokalemia: replaced resolved mag noted to be wnl (7) Carotid stenosis, right: per CTA neck -- "high-grade focal stenosis of the distal petrous segment of the right internal carotid artery at the skull base" will need f/u with vascular surgery post-d/c in meantime --> plavix, statin, and smoking cessation (8) Polycythemia secondary to smoking: even following hydration her hemoglobin remains elevated likely mild polycythemia due to chronic smoking (9) DVT prophylaxis: heparin 5000 BID (10) Dental caries: seen incidentally on CTA neck does have obvious caries on exam today pt told about this today needs dental f/u post-discharge (11) Cytotoxic brain edema: Plan updated hopefully home tomorrow w/ outpatient speech therapy Discharge Plan Discharge Items Patient Disposition: Home - Self-Care Reason For Visit: Speech difficulty, ?confusion Discharge Diagnosis: 1. left-sided stroke 2. speech difficulty/aphasia due to #1 - improving 3. high cholesterol 4. high blood pressure 5. right-sided internal carotid artery stenosis - follow-up with vascular surgery needed 6. tobacco use 7. cavities of your teeth seen on CT scan - dental follow-up needed 8. "pre-diabetes" Activity: Per Instructions section Driving/Machine Use: NO DRIVING until you see Ms Karrie Langley Non-emergency contact: Primary Care Provider and Specialist Call non-emergency contact if: you have any medication questions and your symptoms worsen Follow-up/Referrals: Karrie Langley CRNP [Primary Care Provider] - 03/16/23 10:30 am (Follow up scheduled on 03/16/23 @ 10:30) Will Oro MD [Physician] - (Dr. Oro's office will call you with an appointment. Please bring the CD of your CT scans to that appointment. ) Diet: Heart Healthy Addtl Attending Provider Instructions: Mrs Sheikh, You were diagnosed with a stroke. The stroke was deep in the brain on the left side in a location called the "basal ganglia." CT scans showed that your stroke was caused by a small blood clot in an artery on the left side. During your stay Dr Benson Verma from neurology saw you in consult. He recommended a medicine called "clopidogrel" to prevent a future stroke. He also recommended cholesterol medication, smoking cessation, and blood pressure control. In addition to the above we found that your right carotid artery has a significant blockage in it. This could lead to a future stroke. You will need to see vascular surgery for this. You did well with PT and OT. Speech therapy recommended that you continue seeing speech as an outpatient. This will be set up for [facility] Speech department. Finally, your blood work suggests you are at the very beginning stages of something called "pre-diabetes." This is when your blood sugars are mildly high but do not require any treatment. Ms Langley can track this a couple of times each year with blood work. Please see handout on pre-diabetes. Recommendations - 1. Take clopidogrel 75mg once daily. This is for stroke prevention. 2. Take amlodipine 5mg once daily each morning. This is for your high blood pressure. 3. Take atorvastatin 40mg once daily. This is for cholesterol. 4. LOWER your potassium supplement from 20meq daily to 10meq daily. I have prescribed the new dose for you. Please discard the old 20meq bottle. 5. STOP your atenolol and STOP your hydrochlorothiazide. 6. To help you quit smoking please use a nicoderm patch each day for 28 days. If you relapse and start smoking again do NOT use the nicoderm. Please talk with Karrie Ferrarourer about other ways to quit smoking and stay smoke- free. 7. There were cavities of your teeth on the CT scans. Please see your dentist at your earliest convenience for this. 8. We will set up the vascular surgery referral for you for the blocked carotid artery. Again please bring the CD with you to that appointment. 9. Take it easy - no heavy exertional activities - for the next 2 weeks. 10. NO DRIVING until you see Ms Langley next week. It was our pleasure to care for you! -Dr Tana Kelly Assistant Paralegal Provider Instructions: Risk Factors for Stroke: You can reduce your chances of stroke by working with your medical provider to adopt a healthy lifestyle. Some specific ways to lower your chance of stroke are: * If you are a smoker, now is the time to stop smoking cigarettes * If you are diabetic, improve the control of your blood sugars * Avoid excessive amounts of alcohol * Control high blood pressure * Lose weight if you are overweight * Be sure to lead an active lifestyle * Eat a healthy diet low in salt, cholesterol and fat You should know about other risk factors for stroke that you are unable to control. These include: * Age 55 years or older * Male gender * Certain racial groups: , or / * Family History of Stroke, Mini stroke or Heart Attack * Sickle Cell Disease Who to Call and When: Medical Emergencies: Call 911 immediately if you experience any of the following warning signs and symptoms of Stroke: * Sudden numbness or weakness of the face, arm or leg, especially on one side of the body * Sudden confusion, trouble speaking or understanding * Sudden trouble seeing in one or both eyes * Sudden trouble walking, dizziness, loss of balance or coordination * Sudden severe headache with no cause Do not delay calling 911 if you experience any warning signs or symptoms of a stroke. Delay in seeking medical attention may affect what treatments can be given to you. . Pending Studies at Discharge: No Stand-Alone Forms: [facility], Smoking Cessation, Medications to Prevent Stroke Medications and DC Order Prescriptions: New nicotine [Nicoderm CQ] 21 mg/24 hr Patch 24 Hour 21 mg transdermal QAM Qty: 28 0RF atorvastatin 40 mg Tablet 40 mg PO QAM Qty: 30 5RF Rx Instructions: for high cholesterol clopidogrel 75 mg Tablet 75 mg PO QAM Qty: 30 5RF amlodipine [Norvasc] 5 mg Tablet 5 mg PO QAM Qty: 30 5RF Rx Instructions: for high blood pressure Changed potassium chloride 10 mEq tablet extended release 10 meq PO DAILY Qty: 30 5RF Discontinued atenolol 100 mg tablet 100 mg PO DAILY Qty: 90 3RF hydrochlorothiazide 25 mg tablet 25 mg PO DAILY Qty: 90 3RF prednisone 20 mg tablet 0 mg PO DAILY Patient Comments: per pt she still takes this on occasion. Filled 10/07/22 Discharge Orders: Discharge Order (Routine); Ordered 03/09/23 Ordered By: Mike Jose/Other Patient Handouts: Prediabetes, Eating Heart-Healthy Foods, Carotid Artery Disease Admission Data Admit Date/Time: 03/06/23 12:30 Attending Provider: Mike Fajardo Admit Provider: Janak Mariano Primary Care Provider: Karrie Langley Other Providers: Janak Mariano; Miky Eduardo; Devendra Verma; Millie Cooper; Carine Becerra; Berenice Bullock; Crow Reyez Other Interventions: Discharge Summary Assessment (RN) Last Done: 03/09/23 14:11 Coding Diagnoses Acute ischemic stroke I63.9 Elevated fasting blood sugar R73.01 Sciatic leg pain M54.30 Tobacco use disorder F17.200 Hypertension I10 Hypokalemia E87.6 Carotid stenosis, right I65.21 Polycythemia secondary to smoking D75.1 DVT prophylaxis Z29.9 Dental caries K02.9 Cytotoxic brain edema G93.6
--- NOTE | 2023-03-11 15:31 | Pharmacy Report ---
Pharmacist Stroke Counseling - Date of Service March 11, 2023 - Scope: Pharmacy has been consulted to provide medication discharge counseling for this patient admitted with ischemic stroke as per the Pharmacist Discharge Counseling for Stroke Patients Protocol. - Medications on Discharge: New Rx's Medication Instructions Recorded amlodipine 5 mg tablet (Norvasc) 5 mg PO QAM #30 tabs 03/09/23 atorvastatin 40 mg tablet 40 mg PO QAM #30 tabs 03/09/23 clopidogrel 75 mg tablet 75 mg PO QAM #30 tabs 03/09/23 nicotine 21 mg/24 hr daily 21 mg transdermal QAM #28 ea 03/09/23 transdermal patch (Nicoderm CQ) potassium chloride 10 mEq 10 meq PO DAILY #30 tabs 03/09/23 tablet,extended release - Action: The above medications, specifically ones for stroke treatment/prophylaxis, have been reviewed in detail with the patient and/or patient sales representative trainee(s) prior to discharge. This includes indication, common adverse reactions, drug interactions, and medication administration. Medication counseling has been employed using the teach-back method to ensure understanding. - Outcome: The patient and patient sales representative trainee have demonstrated understanding of the medications. Additional comments: -REVIEWED NICOTINE PATCH Thank you for allowing pharmacy to be involved in the care of this patient. Please call [phone] with any additional questions
== END 2023-03-09 14:42 | disposition home or self-care (01) | DRG 64 ==
LOC: ED 09:37 → 2S 12:30 → SUATTDRO 12:30 → 2S 14:47